=== PATIENT | female | born 1990 | race Caucasian/White ===

== ENCOUNTER 2025-05-27 00:12 | Inpatient (IN) | payer OTHER ==
[~2025-05-27 00:12] MED LIST: Carboprost Tromethamine 250 MCG/1 mL Vial IM PRN; Misoprostol 50 MCG (1/2 of 100 MCG) Tab PO SCH; Nalbuphine HCl 10 MG/ 1ML Amp IVPUSH PRN; Oxytocin/Lactated Ringers 30 UNIT/500 ML BAG IV SCH; Sodium Chloride 0.9% 10 ML Syringe FLUSH PRN; fentaNYL 100 MCG/2 ML SDV IVPUSH PRN
[2025-05-27 00:45] LABS: PLATELET COUNT,PLT 223.0 10^3/uL (150-450); RED BLOOD CELL COUNT 4.28 10^6/uL (4.2-5.4); WHITE BLOOD CELL COUNT,WBC 14.7 10^3/uL (5.0-10.0)
[2025-05-27] MEDS: Clindamycin in 0.9 % Sod Chlor 900 MG in Premix Bag 1 BAG IV SCH ×2 (00:56→10:06)
[2025-05-27] MEDS: Misoprostol 25 MCG (1/4 of 100 MCG) Tab VAG PRN (01:08)
[2025-05-27] MEDS: Lactated Ringers 1,000 ML IV SCH (01:22)
[2025-05-27] MEDS: Oxytocin/Normal Saline 30 UNIT/500 ML BAG IV SCH (07:52)
[2025-05-27] MEDS: ePHEDrine 50 MG/ML SDV IVPUSH PRN (11:45)
[2025-05-27] MEDS ORDERED: Ropivacaine 200 MG in Premix Bag 1 BAG EPIDUR SCH (11:45)
[2025-05-27] MEDS ORDERED: ePHEDrine 50 MG/ML SDV ONE (13:39)
[2025-05-28] MEDS: 50% Dextrose in Water 50 ML Syringe IVPUSH ONE (04:06)
[2025-05-28] MEDS: Ondansetron 4 MG/2 ML SDV IVPUSH PRN (04:18)
[2025-05-28] MEDS ORDERED: Sodium Chloride 0.9% 10 ML Syringe FLUSH PRN (05:39)
[2025-05-28] MEDS ORDERED: Oxytocin 10 Units/1 ML SDV IM PRN (05:39)
[2025-05-28] MEDS ORDERED: Carboprost Tromethamine 250 MCG/1 mL Vial IM PRN (05:39)
[2025-05-28] MEDS ORDERED: Oxytocin/Normal Saline 30 UNIT/500 ML BAG ONE (05:41)
[2025-05-28] MEDS ORDERED: Lactated Ringers 1,000 ML IV SCH (05:45)
[2025-05-28] MEDS ORDERED: Oxytocin/Lactated Ringers 30 UNIT/500 ML BAG IV SCH (05:45)
[2025-05-28] MEDS: Oxytocin/Normal Saline 30 UNIT/500 ML BAG IV SCH (07:28)
[2025-05-28] MEDS ORDERED: ePHEDrine 50 MG/ML SDV IVPUSH PRN (09:53)
[2025-05-28] MEDS ORDERED: diphenhydrAMINE 50 MG/ML SDV IVPUSH PRN (09:53)
[2025-05-28] MEDS ORDERED: Ondansetron 4 MG/2 ML SDV IVPUSH PRN (09:53)
[2025-05-28] MEDS: Lactated Ringers 1,000 ML IV SCH (10:10)
[2025-05-28] MEDS ORDERED: Dexamethasone 4 MG/ML SDV ONE (10:13)
[2025-05-28] MEDS: Sodium Chloride 0.9% 10 ML Syringe FLUSH SCH (10:13)
[2025-05-28] MEDS ORDERED: Ketorolac 30 MG/ML SDV ONE (10:13)
[2025-05-28] MEDS ORDERED: ePHEDrine 50 MG/ML SDV ONE (10:14)
[2025-05-28] MEDS ORDERED: Ondansetron 4 MG/2 ML SDV ONE (10:15)
[2025-05-28] MEDS: Acetaminophen/oxyCODONE 325-5 MG Tab PO PRN (11:10)
[2025-05-28] MEDS: Ketorolac 30 MG/ML SDV IVPUSH SCH (13:10)
[2025-05-28] MEDS: Lactated Ringers 1,000 ML IV ONE (13:36)
[2025-05-28] MEDS: Terbutaline 1 MG/ML SDV SUBCUT ONE (13:36)
[2025-05-29] MEDS: Acetaminophen/oxyCODONE 325-5 MG Tab PO PRN (06:04)
[2025-05-29 06:31] LABS: BASOPHILS PERCENT AUTO 0.2 % (0.0-1.0); EOSINOPHILS PERCENT AUTO 0.4 % (1.0-3.0); LYMPHOCYTES PERCENT AUTO 18.0 % (20.5-50.1); MONOCYTES PERCENT AUTO 6.2 % (2-8); NEUTROPHILS PERCENT AUTO 75.2 % (42.2-75.2); PLATELET COUNT,PLT 146 10^3/uL (150-450); RED BLOOD CELL COUNT 3.06 10^6/uL (4.2-5.4); WHITE BLOOD CELL COUNT,WBC 15.0 10^3/uL (5.0-10.0)
[2025-05-29] MEDS: Prenatal Multivitamin with Calcium/Folic Acid/Iron Tab PO SCH (08:33)
== END 2025-05-30 13:30 | disposition home or self-care (01) | DRG 788 ==
LOC: DL.OB 00:12 → OBSVTOIN 05-28 06:25
PROVIDERS: ADMIT Student in an Organized Health Care Education/Training Program; ATTEND Student in an Organized Health Care Education/Training Program
PROC: 3E033VJ Introduction of Other Hormone into Peripheral Vein, Percutaneous Approach (ICD-10-PCS; 2025-05-28)
PROC: 3E0333Z Introduction of Anti-inflammatory into Peripheral Vein, Percutaneous Approach (ICD-10-PCS; 2025-05-28)
PROC: 3E03329 Introduction of Other Anti-infective into Peripheral Vein, Percutaneous Approach (ICD-10-PCS; 2025-05-28)
PROC: 3E0DXGC Introduction of Other Therapeutic Substance into Mouth and Pharynx, External Approach (ICD-10-PCS; 2025-05-28)
PROC: 3E0S3BZ Introduction of Anesthetic Agent into Epidural Space, Percutaneous Approach (ICD-10-PCS; 2025-05-28)
PROC: 4A0HXCZ Measurement of Products of Conception, Cardiac Rate, External Approach (ICD-10-PCS; 2025-05-28)
PROC: 10D00Z1 Extraction of Products of Conception, Low, Open Approach (ICD-10-PCS; principal; 2025-05-28 06:00)
DX: O48.0 Post-term pregnancy (principal); Z3A.41 41 weeks gestation of pregnancy; Z37.0 Single live birth; O99.824 Streptococcus B carrier state complicating childbirth; O34.211 Maternal care for low transverse scar from previous cesarean delivery; O76 Abnormality in fetal heart rate and rhythm complicating labor and delivery; O62.0 Primary inadequate contractions; O75.81 Maternal exhaustion complicating labor and delivery; O64.0XX0 Obstructed labor due to incomplete rotation of fetal head, not applicable or unspecified
CPT/HCPCS: 36415; 51702; 76815; 85025; 85027; 86592; 86850; 86900; 86901; 94010; A9270-GY; C1726; J0737; J1885; J2405; J2590; J3490; J7120